=== PATIENT | male | born 1965 | race Caucasian/White ===

== ENCOUNTER → 2018-10-13 08:09 | Outpatient (CLI) | payer OTHER, SELFPAY ==
[2015-01-08 11:20] VITALS: BMI 26.4
[2018-10-13 10:20] LABS: Cholesterol 189 mg/dL (200); High Density Lipoprotein 43 mg/dL; PSA,Total - Annual Screen 0.71 ng/mL (0.00-4.00); Triglycerides 98 mg/dL; Very Low Density Lipoprotein 20 mg/dL (5-40)
== END ==
LOC: LAB 08:12 → MTLAB 08:12
PROVIDERS: Family Provider Family Medicine; PCP Family Medicine; Referring Provider Family Medicine; Visit Provider Family Medicine
DX: Z00.00 Encounter for general adult medical examination without abnormal findings (principal)
CPT/HCPCS: 36415; 80061; 84153; G0103

== ENCOUNTER 2018-12-09 05:26 | Day surgery (SDC) | payer OTHER, SELFPAY ==
[2018-12-09] VITALS (11 sets, daily range): BP systolic 96–157; BP diastolic 71–100; PULSE 68–102; RESP 14–16; TEMP 36.3–37.1; O2SAT 93–100
--- NOTE | 2018-12-09 05:54 | PCM.HP.STD ---
Problem List (1) Screening for intestinal cancer Status: Acute History of Present Illness Date of Admission: 12/09/18 The patient is a 53 year old M who presents for screening colonoscopy. His most recent colonoscopy was 5 years ago. He has not personally had a history of colon polyps or colon cancer. He does have a family history of colon cancer in his father. I assisted him 4 years ago with a ventral hernia repair. That remains solid and intact. He has no specific complaints today. No bright red blood per rectum or melena. No abdominal pain. He otherwise has been enjoying good health. Past Medical History Allergies No Known Allergies Allergy (Verified 12/06/18 13:30) Home Medications: Ambulatory Orders Medication Instructions Recorded Selenium 100 mcg PO DAILY 01/08/15 Cholecalciferol (Vitamin D3) 2,000 unit PO DAILY 12/06/18 [Vitamin D3] Surgical History: - - Ventral hernia repair with mesh Smoking Status: Never smoker Review of Systems Constitutional: Denies: Anorexia HEENT: Denies: Dysphasia Cardiovascular: Denies: Chest Pain Respiratory: Denies: Cough Gastrointestinal: Denies: Abdominal Pain, Constipation, Hematochezia, Melena Psychiatric: Reports: Anxiety Endocrine: Denies: Change in Body Habitus VTE Information - Inpt Only VTE Present on Admission: No Patient Problems: Active and Suspected Problems Screening for intestinal cancer (Acute) - Physical Exam General: Alert, Oriented x3, Cooperative, No apparent distress HEENT: Atraumatic Oral: Moist Mucosa Neck: Supple Lungs: Clear to auscultation Cardiovascular: Regular rate, Regular Rhythm Abdomen: Bowel Sounds Present, Soft, Non Tender Extremities: No Calf Tenderness Psych/Mental Status: Normal Affect Assessment/Plan All Active Problems Screening for intestinal cancer (Acute) I recommend a screening colonoscopy. The patient is aware of the technique, benefits, risks and alternatives. He has had an opportunity to ask and have questions answered. He presents via our open access program. We will proceed as noted. Peter Benitez M.D., F.A.C.S.
--- NOTE | 2018-12-09 06:56 | OP.ENDO_ITS ---
12/09/2018 Ravi Adair [address] [place] [address] Re : Colonoscopy procedure for Delfin Johns Dear Dr. Adair This procedure was performed on Sunday, December 09, 2018. My impressions and recommendations are as follows: Impressions : - The entire examined colon is normal. - No specimens collected. Recommendations : - Discharge patient to home. - Resume previous diet. - Continue present medications. - Repeat colonoscopy in 5 years for surveillance. My findings are described in the full procedure note, which is enclosed. If I can be of further assistance, please feel free to contact me at Doctor phone number(s): Work: . Sincerely, Peter Benitez MD 12/09/2018 6:56:17 AM This report has been signed electronically.
== END 2018-12-09 09:30 | disposition home or self-care (01) ==
LOC: EN 05:27 → AC 05:28
PROVIDERS: Family Provider Family Medicine; PCP Family Medicine; Referring Provider Surgery; Visit Provider Surgery
PROC: 0DJD8ZZ Inspection of Lower Intestinal Tract, Via Natural or Artificial Opening Endoscopic (ICD-10-PCS; CPT 45378; principal; 2018-12-09 06:25)
PROC: 0DJD8ZZ Inspection of Lower Intestinal Tract, Via Natural or Artificial Opening Endoscopic (ICD-10-PCS; CPT 45378; 2018-12-09 06:25)
DX: Z12.11 Encounter for screening for malignant neoplasm of colon (principal); Z80.0 Family history of malignant neoplasm of digestive organs
CPT/HCPCS: 45378; 99152; 99153; J7120

== ENCOUNTER → 2021-02-24 14:05 | Outpatient (CLI) | payer OTHER, SELFPAY ==
[2015-01-08 11:20] VITALS: BMI 26.4
[2021-02-24 16:02] LABS: T4 Free Direct 1.03 ng/dL (0.76-1.46); Thyroid Stim Hormone (TSH) 2.99 uIU/mL (0.358-3.74)
== END ==
PROVIDERS: PCP Family Medicine; Referring Provider Family Medicine; Visit Provider Family Medicine
DX: R53.83 Other fatigue (principal); E55.9 Vitamin D deficiency, unspecified
CPT/HCPCS: 36415; 82306; 84439; 84443

== ENCOUNTER → 2021-06-19 | Outpatient (CLI) | payer OTHER, SELFPAY | END | disposition home or self-care (01) | LOC: LABSPEC 14:31 | PROVIDERS: PCP Family Medicine; Referring Provider Family Medicine; Visit Provider Family Medicine | DX: Z20.822 Contact with and (suspected) exposure to COVID-19 (principal) | CPT/HCPCS: 87635; U0005; U0003 ==

== ENCOUNTER 2021-11-10 06:36 | Emergency (ER) | payer OTHER, SELFPAY ==
[2021-11-10 06:37] VITALS: BP 132/82; PULSE 109; RESP 18; TEMP 37.8; O2SAT 95; BMI 28.5
--- NOTE | 2021-11-10 07:53 | EX.ED.DYSGE1 ---
HPI History of Present Illness Chief Complaint: General Illness Informant: patient Onset/Context/Timing Onset: Days Context: Gradual Onset Timing: Continuous Worsened by: Nothing Relieved by: Tylenol Narrative Narrative: Patient presents with fever, nausea, and diarrhea that has been getting worse over the past week. Patient states that originally he fell and had an abrasion on his right lower leg. Patient states this got infected and he was prescribed Bactrim by his primary care physician. Patient states that over the last couple days he started having some fevers up to 101.4 at home. Patient admits to nausea and decreased appetite. Patient states he had 1 small emesis 2 days ago. Patient states he has been having watery diarrhea. Patient denies any melena or hematochezia. PFSH PFSH Medical History no medical history no medical history Home Medications cholecalciferol (vitamin D3) [Vitamin D3] 2,000 unit PO DAILY 12/06/18 [History Last Taken Unknown] clindamycin HCl [Cleocin HCl] 300 mg PO Q6H #28 capsule 11/10/21 [Rx Last Taken Unknown] multivitamin [Multi-Daily] 1 tab PO DAILY 11/10/21 [History Last Taken Unknown] Allergy/AdvReac Type Severity Reaction Status Date / Time No Known Allergies Allergy Verified 11/10/21 06:40 Surgical History (Updated 11/10/21 @ 07:[address] Ravi Davison DO) Hx of inguinal herniorrhaphy Hx of toe surgery Social History Smoking Status: Never smoker ROS ROS ED Constitutional Constitutional ED: Reports fever(s); Denies chills Eyes Eyes: Reports blurry vision; Denies diplopia ENT ENT ED: Denies rhinorrhea or sore throat Cardiovascular Cardiovascular: Denies chest pain or palpitations Respiratory/Chest Respiratory/Chest: Denies cough or dyspnea Gastrointestinal Gastrointestinal: Reports diarrhea, nausea and vomiting Genitourinary Genitourinary ED: Denies dysuria or hematuria Musculoskeletal Musculoskeletal: Denies back pain or neck pain Integumentary Denies abscess or rash Neurologic Neurologic: Denies headache(s) or weakness Allergic/Immunologic Allergic/Immunologic ED: Denies mouth swelling or urticaria EXAM Physical Exam Const Vital Signs: 11/10/21 06:37 11/10/21 08:52 Temperature 100.0 F H 101.4 F H Temperature Source Temporal Oral Pulse Rate 109 H 100 Respiratory Rate 18 18 Blood Pressure 132/82 H 125/79 H Blood Pressure Mean 98 94 Pulse Ox 95 95 Oxygen Delivery Method Room Air Room Air Positive well nourished and well developed General Appearance ED: well developed and NAD HEENT Reports moist mucous membranes Neck supple and no JVD Resp normal respiratory effort and clear to auscultation bilaterally Cardio regular rate, regular rhythm and no murmurs GI normal to inspection, nondistended, normoactive bowel sounds and non-tender Palpation: soft Neuro oriented x3, CN's II-XII intact bilaterally and no sensory deficits noted Sensorium / Orientation: alert Motor Exam: strength 5/5 throughout Psych mental status grossly normal Skin Skin Narrative: There is a healing abrasion over the anterior aspect of the right lower extremity. There is some mild surrounding erythema. There is some edema. There is no fluctuance or fluid collection noted. There is no discharge or drainage. There is mild tenderness over this area. Pedal pulses are equal bilateral. Sensation was intact to light touch in all digits. MDM MDM MDM Narrative Medical decision making narrative: Patient was given IV fluids and Zofran. CBC was within normal limits. Comprehensive metabolic profile showed a sodium of 131. Creatinine was 1.35. AST was 65 and ALT was 123. The remainder was essentially within normal limits. Urinalysis does not show any evidence of urinary tract infection. COVID-19 rapid antigen was obtained and was negative. Influenza A and influenza B swabs were obtained and were negative. Patient did develop a temperature of 101.4 here. Patient was given a dose of Tylenol for this. Patient was advised of his findings. Patient was advised that this could be a viral gastroenteritis or possibly medication reaction to the Bactrim. Patient was instructed to stop taking his Bactrim. Patient was given a prescription for clindamycin. Patient was instructed continue Tylenol or ibuprofen as needed for fevers. Patient was instructed to follow-up with his primary care physician in 5 to 7 days. Patient understood and was agreeable with the plan. All questions were answered. Lab Data Labs: Laboratory Results - last 24 hr 11/10/21 11/10/21 11/10/21 06:50 06:50 08:37 WBC 8.5 RBC 5.40 Hgb 16.5 Hct 45.4 MCV 84.1 MCH 30.6 MCHC 36.3 H RDW Std Deviation 38.7 RDW Coeff of Sarah 12.7 Plt Count 235 MPV 9.9 Immature Gran % (Auto) 0.400 Neut % (Auto) 83.1 H Lymph % (Auto) 8.8 L Forrest % (Auto) 5.8 Eos % (Auto) 1.4 Baso % (Auto) 0.5 Absolute Neuts (auto) 7.1 Absolute Lymphs (auto) 0.75 L Nucleated RBC % 0 Sodium 131 L Potassium 3.9 Chloride 103 Carbon Dioxide 20.0 L Anion Gap 8 BUN 15 Creatinine 1.35 H Estim Creat Clear Calc 65.85 Est GFR (MDRD) Af Amer 71 Est GFR (MDRD) Non-Af 58 L BUN/Creatinine Ratio 11.1 Glucose 116 H Calcium 9.0 Total Bilirubin 0.70 AST 65 H ALT 123 H Alkaline Phosphatase 55 Total Protein 6.9 Albumin 3.6 Globulin 3.3 Albumin/Globulin Ratio 1.1 Urine Color Yellow Urine Clarity Clear Urine pH 6.0 Ur Specific [place] 1.025 Urine Protein 30 H Urine Glucose (UA) Normal Urine Ketones 50 H Urine Occult Blood 150 H Urine Nitrite Negative Urine Bilirubin 1 H Urine Urobilinogen 1 H Ur Leukocyte Esterase 25 H Urine RBC 0-5 SEEN Urine WBC 0-5 SEEN Ur Squamous Epith Cells 0 SEEN Urine Bacteria 0 SEEN Urine Mucus 0 SEEN Discharge Plan Triage Chief Complaint: General Illness ED Provider: Ravi Davison Dx/Rx/DC Orders Clinical Impression: Cellulitis of right lower leg, Nausea vomiting and diarrhea Instructions: ED Cellulitis, ED Vomiting and Diarrhea ... Prescriptions: New clindamycin HCl [Cleocin HCl] 300 MG capsule 300 mg PO Q6H Qty: 28 RF: 0 Discontinued sulfamethoxazole 500 mg Tablet 1 mg PO BID RF: 0 No Action cholecalciferol (vitamin D3) [Vitamin D3] 2,000 UNIT capsule 2,000 unit PO DAILY RF: 0 multivitamin [Multi-Daily] Tablet 1 tab PO DAILY RF: 0 Primary Care Provider: Ravi Adair Referrals: Ravi Adair MD [Primary Care Provider] - 5-7 Days Disposition Disposition: Home, Self Care
[2021-11-10 08:30] LABS: Absolute Lymphocyte Count 0.75 X10^3/uL (0.83-4.51); Absolute Neutrophil Count 7.1 X10^3/uL (2.0-7.7); Basophil# 0.04 X10^3/uL; Basophil% 0.5 % (0-1); Eosinophil# 0.12 X10^3/uL; Eosinophils% 1.4 % (0-5); Hematocrit 45.4 % (40-54); Hemoglobin 16.5 g/dL (13.0-16.5); Lymphocyte # 0.75 X10^3/ul (0.83-4.51); Lymphocyte % 8.8 % (19-41); Mean Corp Hgb Conc 36.3 g/dL (32-36); Mean Corpuscular Hgb 30.6 pg (27.0-32.0); Mean Corpuscular Volume 84.1 fL (80-94); Mean Platelet Vol. 9.9 fl (6.2-12.0); Monocyte# 0.49 X10^3/uL; Monocyte% 5.8 % (0-10); NRBC Flagged by Analyzer 0 % (0-5); Neutrophil # 7.08 X10^3/uL (2.7-7.7); Neutrophil % 83.1 % (47-70); Platelet Count 235 K/mm3 (150-450); RBC Distribution Width CV 12.7 % (11.6-14.6); RBC Distribution Width SD 38.7 fl (35.1-43.9); White Blood Count 8.5 K/mm3 (4.4-11.0)
[2021-11-10 08:44] LABS: Bacteria 0 SEEN /hpf (None Seen); Mucous, Urine 0 SEEN /hpf (<or=2+); Squamous Epithelial Cells - UA 0 SEEN /hpf (0-5)
[2021-11-10 08:47] LABS: Color, Urine Yellow (Yellow); Glucose, Dipstick Normal (Normal); Ketone-Dipstick 50 mg/dl (Negative); Leukocyte Esterase-Dipstick 25 /ul (Negative); Nitrite-Dipstick Negative (Negative); Occult Blood-Urine 150 /ul (Negative); Protein-Dipstick 30 mg/dl (Negative); Specific Gravity, Urine 1.025 (1.002-1.030); Urine Clarity Clear (Clear); Urine Urobilinogen 1 mg/dl (Normal)
[2021-11-10 08:50] LABS: Urine Bilirubin Dipstick 1 mg/dL (Negative)
[2021-11-10 08:52] VITALS: BP 125/79; PULSE 100; RESP 18; TEMP 38.6; O2SAT 95
[2021-11-10 08:55] LABS: Red Blood Cells-Urine 0-5 SEEN /hpf (0-5); White Blood Cells 0-5 SEEN /hpf (0-5)
[2021-11-10 08:59] LABS: ALB/GLOB Ratio 1.1 RATIO (0.9-2.4); AST(SGOT) 65 U/L (15-37); Alanine Aminotransfer ALT/SGPT 123 U/L (16-61); Albumin, Serum 3.6 g/dL (3.2-5.0); Alkaline Phosphatase 55 U/L (45-117); Anion Gap 8 (5-15); BUN 15 mg/dL (7-18); BUN/Creat Ratio 11.1 RATIO (10-20); Chloride 103 mmol/L (98-107); Creatinine, Serum 1.35 mg/dL (0.70-1.30); EST Glomerular Filtration Rate 58 mL/min (>60); Est Glom Filt Rate - Afr Amer 71 mL/min (>60); Estimated Creatinine Clearance 65.85 ml/min; Globulin 3.3 g/dL (2.2-4.2); Glucose 116 mg/dL (74-106); Potassium 3.9 mmol/L (3.5-5.1); Protein, Total 6.9 g/dL (6.4-8.2); Sodium Level 131 mmol/L (136-145)
[2021-11-10] MEDS: 0.9% Normal Saline 1,000 ML 1000 ML IV (09:00)
[2021-11-10] MEDS: Acetaminophen 500 MG Tablet 1000 MG PO (09:00)
[2021-11-10] MEDS: Ondansetron 4 MG/2 ML Vial IV (09:00)
[2021-11-10 10:39] VITALS: BP 111/75; PULSE 85; RESP 16; TEMP 37.6; O2SAT 93
== END 2021-11-10 11:07 | disposition home or self-care (01) ==
PROVIDERS: Emergency Provider Emergency Medicine; PCP Family Medicine; Visit Provider Emergency Medicine
DX: L03.115 Cellulitis of right lower limb (principal); R11.2 Nausea with vomiting, unspecified; R19.7 Diarrhea, unspecified
CPT/HCPCS: 80053; 81001; 85025; 87426; 87804; 87811; 96361; 96374; 99283; J2405

== ENCOUNTER 2021-11-12 08:28 | Outpatient (CLI) | payer OTHER, SELFPAY | END 2021-11-12 23:59 | disposition home or self-care (01) | LOC: LABSPEC 08:29 | PROVIDERS: PCP Family Medicine; Referring Provider Family Medicine; Visit Provider Family Medicine | DX: R19.7 Diarrhea, unspecified (principal) | CPT/HCPCS: 87493 ==

== ENCOUNTER → 2022-02-03 | Outpatient (CLI) | payer OTHER, SELFPAY | END | disposition home or self-care (01) | LOC: IMMUN 13:53 | PROVIDERS: PCP Family Medicine; Referring Provider Family Medicine; Visit Provider Family Medicine | DX: Z23 Encounter for immunization (principal) | CPT/HCPCS: 0064A ==

== ENCOUNTER → 2022-04-14 | Outpatient (CLI) | payer OTHER, SELFPAY ==
[2022-04-14 09:58] LABS: Absolute Lymphocyte Count 3.17 X10^3/uL (0.83-4.51); Absolute Neutrophil Count 4.2 X10^3/uL (2.0-7.7); Basophil# 0.12 X10^3/uL; Basophil% 1.4 % (0-1); Eosinophil# 0.17 X10^3/uL; Hematocrit 47.8 % (40-54); Hemoglobin 16.1 g/dL (13.0-16.5); Lymphocyte # 3.17 X10^3/ul (0.83-4.51); Lymphocyte % 36.7 % (19-41); Mean Corp Hgb Conc 33.7 g/dL (32-36); Mean Platelet Vol. 9.6 fl (6.2-12.0); Monocyte# 0.91 X10^3/uL; Monocyte% 10.5 % (0-10); NRBC Flagged by Analyzer 0 % (0-5); Neutrophil # 4.23 X10^3/uL (2.7-7.7); Neutrophil % 49.1 % (47-70); Platelet Count 377 K/mm3 (150-450); RBC Distribution Width CV 12.8 % (11.6-14.6); Red Blood Count 5.37 M/mm3 (4.6-6.2); White Blood Count 8.6 K/mm3 (4.4-11.0)
[2022-04-14 10:19] LABS: Vitamin D,25 Hydroxy 44.3 ng/mL
[2022-04-14 10:25] LABS: Microalbumin,Random Urine 6.4 mg/L (NO RANGE EST.); Microalbumin:Creatinine Ratio 3.1 mg/g CRE (<30 mg/g CRE)
[2022-04-14 10:54] LABS: ALB/GLOB Ratio 1.1 RATIO (0.9-2.4); AST(SGOT) 24 U/L (15-37); Alanine Aminotransfer ALT/SGPT 80 U/L (16-61); Albumin, Serum 3.6 g/dL (3.2-5.0); Alkaline Phosphatase 49 U/L (45-117); Anion Gap 5 (5-15); BUN 19 mg/dL (7-18); BUN/Creat Ratio 16.5 RATIO (10-20); Calcium,Total 8.7 mg/dL (8.5-10.1); Chloride 105 mmol/L (98-107); Cholesterol 170 mg/dL (200); Creatinine, Serum 1.15 mg/dL (0.70-1.30); EST Glomerular Filtration Rate 70 mL/min (>60); Est Glom Filt Rate - Afr Amer 85 mL/min (>60); Globulin 3.3 g/dL (2.2-4.2); Glucose 98 mg/dL (74-106); High Density Lipoprotein 51 mg/dL; Potassium 3.7 mmol/L (3.5-5.1); Protein, Total 6.9 g/dL (6.4-8.2); Sodium Level 139 mmol/L (136-145); Thyroid Stim Hormone (TSH) 5.24 uIU/mL (0.358-3.74); Triglycerides 97 mg/dL; Very Low Density Lipoprotein 19 mg/dL (5-40)
== END | disposition home or self-care (01) ==
LOC: MTLAB 08:03
PROVIDERS: PCP Family Medicine; Referring Provider Family Medicine; Visit Provider Family Medicine
DX: Z00.00 Encounter for general adult medical examination without abnormal findings (principal); E55.9 Vitamin D deficiency, unspecified; G47.33 Obstructive sleep apnea (adult) (pediatric); R94.6 Abnormal results of thyroid function studies; R73.03 Prediabetes
CPT/HCPCS: 36415; 80053; 80061; 82043; 82306; 82570; 84443; 85025

== ENCOUNTER → 2022-12-28 | Outpatient (CLI) | payer OTHER, SELFPAY ==
[2022-12-28 10:46] LABS: ALB/GLOB Ratio 1.4 RATIO (0.9-2.4); AST(SGOT) 28 U/L (15-37); Alanine Aminotransfer ALT/SGPT 67 U/L (16-61); Albumin, Serum 3.9 g/dL (3.2-5.0); Alkaline Phosphatase 51 U/L (45-117); Anion Gap 7 (5-15); BUN 12 mg/dL (7-18); BUN/Creat Ratio 11.3 RATIO (10-20); Calcium,Total 9.2 mg/dL (8.5-10.1); Chloride 108 mmol/L (98-107); Cholesterol 195 mg/dL (200); Creatinine, Serum 1.06 mg/dL (0.70-1.30); EST Glomerular Filtration Rate 77 mL/min (>60); Est Glom Filt Rate - Afr Amer 93 mL/min (>60); Globulin 2.7 g/dL (2.2-4.2); Glucose 128 mg/dL (74-106); High Density Lipoprotein 45 mg/dL; PSA,Total - Annual Screen 0.83 ng/mL (0.00-4.00); Potassium 4.3 mmol/L (3.5-5.1); Protein, Total 6.6 g/dL (6.4-8.2); Sodium Level 142 mmol/L (136-145); Triglycerides 107 mg/dL; Very Low Density Lipoprotein 21 mg/dL (5-40)
[2022-12-31 11:15] LABS: Hemoglobin A1c 5.8 % (3.8-5.6)
== END | disposition home or self-care (01) ==
LOC: MTLAB 07:55
PROVIDERS: PCP Family Medicine; Referring Provider Family Medicine; Visit Provider Family Medicine
DX: Z00.00 Encounter for general adult medical examination without abnormal findings (principal); Z12.5 Encounter for screening for malignant neoplasm of prostate
CPT/HCPCS: 36415; 80053; 80061; 83036; 84153; G0103

== ENCOUNTER 2023-12-03 07:23 | Day surgery (SDC) | payer OTHER, SELFPAY ==
[2023-12-03 07:43] VITALS: BP 146/80; PULSE 88; RESP 16; TEMP 36.9; O2SAT 97; BMI 29.5
[2023-12-03] MEDS: Lactated Ringers 1,000 ML 15 ML IV (07:51)
--- NOTE | 2023-12-03 08:30 | COLBX_PTH ---
PATIENT: MICHELE PÉREZ II LOC: EN U#:[id number] AGE/SX: 58/M ROOM: RE12/03/[address]: Dr. Peter Benitez MD : 1965 BED: DIS: 12/03/2023 SPEC #: [id number] RECD: 12/03/23 11:09 STATUS: RAGHAV BUSTAMANTE #: [id number] MIK: 12/03/23 08:[address]: Peter Benitez DEPT: SURGICAL PATHOLOGY RECD BY: Key P[place] ENTERED: 12/03/23 12:14 SP TYPE: COLON BX OTHR DR: Dr. Ravi Adair MD Tissues: A - Cecum, NOS B - Sigmoid colon biopsy C - Rectum, NOS Procedures: Surgery Specimen Level IV HEADER OPERATION: Colonoscopy- open access with poly biopsy PRE-OP DIAGNOSIS: Screening TISSUE SUBMITTED: A-Cecal polyp biopsy, B- Polyp biopsy distal sigmoid, C- Polyp biopsy proximal rectum x2 MICROSCOPIC DIAGNOSIS A. Cecal polyp, biopsy: Fragments of colonic mucosa, no pathologic diagnosis. B. Distal sigmoid polyp, biopsy: Fragments of hyperplastic polyp. C. Proximal rectal polyps x2, biopsy: Fragments of hyperplastic polyp. / 12/06/23 MICROSCOPIC DESCRIPTION Slides are reviewed. GROSS DESCRIPTION A. Received in fixative is one container labeled with the patient's name and designated Cecal polyp biopsy. The specimen consists of multiple irregular fragments of light verma soft tissue that in aggregate measure 1.5 x 0.3 x 0.1 cm. The specimen is totally submitted in one cassette. B. Received in fixative is one container labeled with the patient's name and designated Polyp biopsy distal sigmoid. The specimen consists of two irregular fragments of light verma soft tissue that in aggregate measure 0.5 x 0.5 x 0.1 cm. The specimen is totally submitted in one cassette. C. Received in fixative is one container labeled with the patient's name and designated Polyp biopsy proximal rectum x2. The specimen consists of multiple irregular fragments of light verma soft tissue that in aggregate measure 1.0 x 0.5 x 0.1 cm. The specimen is totally submitted in one cassette. / 12/03/23 TC:1 CPT:61306e3
--- NOTE | 2023-12-03 09:11 | PCM.HP.STD ---
HPI - General General Date of Admission: 05/14/20 Date of Service: 12/03/23 Chief Complaint: Screening for intestinal cancer HPI Narrative MICHELE PÉREZ, is a 58 M who presents who presents today for his follow-up colonoscopy. Previous one was 2019. He has a family history with a paternal grandfather who had colon cancer and her father had multiple colon polyps. The patient presents via open access today. He denies any acute illnesses. No abdominal pain. No bright red blood per rectum or melena. He otherwise states that his health is stable. [facility] Medical History (Updated 12/01/23 @ 11:00 by Ann Marie Childers) Alcohol use Anxiety CPAP (continuous positive airway pressure) dependence Family hx of colon cancer Gastric reflux History of stress test Metabolic syndrome Non-smoker Sleep apnea Wears glasses Home Medications cholecalciferol (vitamin D3) 25 mcg (1,000 unit) tablet 25 mcg PO DAILY 10/16/23 [History Last Taken Unknown] multivitamin 1 tab PO DAILY 10/16/23 [History Last Taken 11/30/23] naproxen sodium 220 mg tablet (Aleve) 220 mg PO Q12H PRN pain 10/20/23 [History Last Taken Unknown] Allergy/AdvReac Type Severity Reaction Status Date / Time Sulfa (Sulfonamide Allergy Severe Nausea/Vom/ Verified 12/03/23 07:42 Antibiotics) Diarrhea Environmental Allergies: Allergy Other Verified 12/03/23 07:42 Uncoded Family History (Updated 10/20/23 @ 08:14 by Kandice Luke) Father Melanoma Myocardial infarction Colon polyps Grandfather Colon cancer Surgical History (Updated 12/01/23 @ 11:01 by Ann Marie Childers) Hx of colonoscopy Hx of inguinal herniorrhaphy Hx of LASIK Hx of toe surgery Social History (Updated 10/20/23 @ 08:32 by Kandice Luke) household members: spouse current occupational status: employed current occupation: [employer] Smoking Status: Never smoker details: Occasional alcohol substance use type: does not use ROS Constitutional Constitutional: Reports systems reviewed and no addt'l complaints, except as documented Cardiovascular Cardiovascular: Denies chest pain Respiratory/Chest Respiratory/Chest: Denies shortness of breath at rest Gastrointestinal Gastrointestinal: Denies abdominal pain, change in bowel habits, hematochezia or melena Vital Signs Vital Signs Vital Signs: 12/03/23 07:43 12/03/23 07:43 Temperature 98.4 F Temperature Source Temporal Pulse Rate 88 Respiratory Rate 16 Respiratory Pattern Normal Blood Pressure 146/80 H Blood Pressure Mean 102 Blood Pressure Source Monitor Blood Pressure Position Semi-Fowlers Blood Pressure Location Left Arm Pulse Ox 97 Oxygen Delivery Method Room Air Weight Weight: 211 lb 10.3 oz Body Mass Index (BMI) 29.5 Physical Exam Const alert, oriented x3 and no apparent distress General Appearance: cooperative and comfortable Eyes General Eye: normal appearance of both eyes Neck General: normal visual inspection Chest inspection of chest normal Resp Effort and Inspection: able to speak in complete sentences and symmetric chest movement Auscultation: clear to auscultation bilaterally Cardio regular rate and regular rhythm GI soft to palpation, non-tender and non-distended Extremity no calf tenderness Neuro oriented x3 Psych thought process normal Assessment & Plan Assessment/Plan (1) Encounter for screening for malignant neoplasm of colon: PLAN: The patient presents for colonoscopy with possible biopsy or polypectomy as indicated. He is aware of the technique, benefit, risk, alternatives. He has had an opportunity to ask and have questions answered. As noted he presents via open access today. Peter Benitez M.D., F.A.C.S.
--- NOTE | 2023-12-03 09:54 | OP.COLON_ITS ---
Patient Name: Delfin Johns Procedure Date: 12/03/2023 9:19 AM Date of : 1965 Age: 58 Procedure: Colonoscopy Indications: Screening for colorectal malignant neoplasm Providers: Peter Benitez MD Medicines: See the Anesthesia note for documentation of the administered medications Patient Profile: Last Colonoscopy: 2018. Complications: No immediate complications. Procedure: Pre-Anesthesia Assessment: - Prior to the procedure, a History and Physical was performed, and patient medications and allergies were reviewed. The patient's tolerance of previous anesthesia was also reviewed. The risks and benefits of the procedure and the sedation options and risks were discussed with the patient. All questions were answered, and informed consent was obtained. Prior Anticoagulants: The patient has taken no anticoagulant or antiplatelet agents. ASA Grade Assessment: II - A patient with mild systemic disease. After reviewing the risks and benefits, the patient was deemed in satisfactory condition to undergo the procedure. After I obtained informed consent, the scope was passed under direct vision. Throughout the procedure, the patient's blood pressure, pulse, and oxygen saturations were monitored continuously. The adult colonoscope was introduced through the anus and advanced to the cecum, identified by appendiceal orifice and ileocecal valve. The colonoscopy was performed without difficulty. The patient tolerated the procedure well. The quality of the bowel preparation was adequate to identify polyps. The ileocecal valve and the appendiceal orifice were photographed. Scope In: 9:23:06 AM Scope Withdrawal Time 0 hours 18 minutes 4 seconds Scope Out: 9:47:37 AM Total Procedure Duration Time 0 hours 24 minutes 31 seconds Findings: The digital rectal exam findings include non-thrombosed internal hemorrhoids and internal hemorrhoids that prolapse with straining, but spontaneously regress to the resting position (Grade II). Pertinent negatives include normal prostate (size, shape, and consistency). An 8 mm polyp was found in the cecum. The polyp was sessile. The polyp was removed with a cold biopsy forceps. Resection and retrieval were complete. A 5 mm polyp was found in the distal sigmoid colon. The polyp was sessile. The polyp was removed with a cold biopsy forceps. Resection and retrieval were complete. Three sessile polyps were found in the proximal rectum. The polyps were 2 to 3 mm in size. These polyps were removed with a cold biopsy forceps. Resection and retrieval were complete. The left colon was mildly tortuous. Impression: - Non-thrombosed internal hemorrhoids and internal hemorrhoids that prolapse with straining, but spontaneously regress to the resting position (Grade II) found on digital rectal exam. - One 8 mm polyp in the cecum, removed with a cold biopsy forceps. Resected and retrieved. - One 5 mm polyp in the distal sigmoid colon, removed with a cold biopsy forceps. Resected and retrieved. - Three 2 to 3 mm polyps in the proximal rectum, removed with a cold biopsy forceps. Resected and retrieved. - Tortuous colon. Recommendation: - Discharge patient to home. - Resume previous diet. - Continue present medications. - Repeat colonoscopy in 5 years for surveillance based on pathology results. - Telephone my office for pathology results in 1 week. Procedure Code(s): --- Professional --- 34537, Colonoscopy, flexible; with biopsy, single or multiple Diagnosis Code(s): --- Professional --- Z12.11, Encounter for screening for malignant neoplasm of colon K64.1, Second degree hemorrhoids D12.0, Benign neoplasm of cecum D12.5, Benign neoplasm of sigmoid colon D12.8, Benign neoplasm of rectum Q43.8, Other specified congenital malformations of intestine CPT copyright 2021 [employer]. All rights reserved. The codes documented in this report are preliminary and upon network operations specialist review may be revised to meet current compliance requirements. Peter Benitez MD 12/03/2023 9:54:02 AM This report has been signed electronically. Number of Addenda: 0 Note Initiated On: 12/03/2023 9:19 AM
--- NOTE | 2023-12-03 09:54 | OP.CCLET_ITS ---
12/03/2023 Ravi Adair [address] [facility] [place] [place] [address] [place] [address] Re : Colonoscopy procedure for Delfin Johns Dear Dr. Adair This procedure was performed on Sunday, December 03, 2023. My impressions and recommendations are as follows: Impressions : - Non-thrombosed internal hemorrhoids and internal hemorrhoids that prolapse with straining, but spontaneously regress to the resting position (Grade II) found on digital rectal exam. - One 8 mm polyp in the cecum, removed with a cold biopsy forceps. Resected and retrieved. - One 5 mm polyp in the distal sigmoid colon, removed with a cold biopsy forceps. Resected and retrieved. - Three 2 to 3 mm polyps in the proximal rectum, removed with a cold biopsy forceps. Resected and retrieved. - Tortuous colon. Recommendations : - Discharge patient to home. - Resume previous diet. - Continue present medications. - Repeat colonoscopy in 5 years for surveillance based on pathology results. - Telephone my office for pathology results in 1 week. My findings are described in the full procedure note, which is enclosed. If I can be of further assistance, please feel free to contact me at Doctor phone number(s): Work: . Sincerely, Peter Benitez MD 12/03/2023 9:54:02 AM This report has been signed electronically.
[2023-12-03 09:57] VITALS: BP 146/80; BP 93/60; PULSE 74; RESP 20; TEMP 36.3; O2SAT 98
[2023-12-03 10:00] VITALS: BP 146/80; BP 96/52; PULSE 67; RESP 18; O2SAT 97
[2023-12-03 10:05] VITALS: BP 110/78; BP 146/80; PULSE 67; RESP 18; O2SAT 98
[2023-12-03 10:09] VITALS: BP 105/75; BP 146/80; PULSE 66; RESP 18; TEMP 36.4; O2SAT 97
[2023-12-03 10:28] VITALS: BP 146/80
== END 2023-12-03 11:02 | disposition home or self-care (01) ==
LOC: EN 07:37 → AC 08:39
PROVIDERS: PCP Family Medicine; Referring Provider Surgery; Visit Provider Surgery
PROC: 0DJD8ZZ Inspection of Lower Intestinal Tract, Via Natural or Artificial Opening Endoscopic (ICD-10-PCS; CPT 45378; principal; 2023-12-03 08:25)
DX: Z12.11 Encounter for screening for malignant neoplasm of colon (principal); K64.1 Second degree hemorrhoids; D12.0 Benign neoplasm of cecum; D12.5 Benign neoplasm of sigmoid colon; D12.8 Benign neoplasm of rectum; Q43.8 Other specified congenital malformations of intestine; Z83.719 Family history of colon polyps, unspecified
CPT/HCPCS: 45380; 88305; J7120; J2405

== ENCOUNTER → 2023-12-17 | Outpatient (CLI) | payer OTHER, SELFPAY ==
[2023-12-17 11:42] LABS: Hemoglobin A1c 5.9 % (3.8-5.6)
[2023-12-17 11:48] LABS: ALB/GLOB Ratio 1.2 RATIO (0.9-2.4); AST(SGOT) 38 U/L (15-37); Alanine Aminotransfer ALT/SGPT 77 U/L (16-61); Albumin, Serum 3.8 g/dL (3.2-5.0); Alkaline Phosphatase 46 U/L (45-117); Anion Gap 6 (5-15); BUN 12 mg/dL (7-18); Calcium,Total 9.1 mg/dL (8.5-10.1); Chloride 108 mmol/L (98-107); Cholesterol 180 mg/dL (200); Creatinine, Serum 1.09 mg/dL (0.70-1.30); EST Glomerular Filtration Rate 74 mL/min (>60); Est Glom Filt Rate - Afr Amer 90 mL/min (>60); Globulin 3.1 g/dL (2.2-4.2); Glucose 121 mg/dL (74-106); High Density Lipoprotein 45 mg/dL; Protein, Total 6.9 g/dL (6.4-8.2); Sodium Level 139 mmol/L (136-145); Triglycerides 111 mg/dL; Very Low Density Lipoprotein 22 mg/dL (5-40)
== END | disposition home or self-care (01) ==
LOC: MTLAB 08:30
PROVIDERS: PCP Family Medicine; Referring Provider Family Medicine; Visit Provider Family Medicine
DX: Z13.220 Encounter for screening for lipoid disorders (principal); E88.810 Metabolic syndrome
CPT/HCPCS: 36415; 80053; 80061; 83036

== ENCOUNTER → 2024-02-01 | Outpatient (CLI) | payer OTHER, SELFPAY ==
--- NOTE | 2024-02-01 08:38 | US_ITS ---
STUDY: ABDOMINAL ULTRASOUND - RIGHT UPPER QUADRANT; ELASTOGRAPHY REASON FOR VISIT: Male, 58 years old. Abnormal transaminases. TECHNIQUE: Ultrasound evaluation of the right upper quadrant was performed with real-time and static cid-scale imaging. Point quantification shear wave elastography was performed ([employer]). TECHNICAL QUALITY: Adequate. COMPARISON: None. FINDINGS: Liver: The liver is slightly enlarged and measures 18.1 cm. There is increased echogenicity consistent with fatty infiltration. The bile ducts are within normal limits. There is hepatic color flow. The direction of portal flow is hepatopetal. There is no demonstrated mass lesion. Median liver stiffness measured 7.4 kPa. Gallbladder: Normal distended gallbladder. The gallbladder wall measures 2.0 mm. There is a negative sonographic Hurd''s sign. There is no pericholecystic fluid. There are no gallstones. Common Bile Duct (C.B.D.): The common bile duct measures 4.0 mm. Pancreas: There is normal echogenicity of the visualized pancreas. There is no demonstrated pancreatic mass or cyst. Right Kidney: Normal size of the right kidney. The right kidney measures 12.1 cm x 5.8 cm x 4.9 cm. Normal renal cortex. The right cortex measures 1.9 cm. There is no demonstrated renal mass or cyst. There is no right hydronephrosis. US/ABD Limited w/ Elastography IMPRESSION: 1. 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 Electronically Signed: Ryan Ro MD at 14:58 EDT ,
== END | disposition home or self-care (01) ==
PROVIDERS: PCP Family Medicine; Referring Provider Family Medicine; Visit Provider Family Medicine
DX: R74.8 Abnormal levels of other serum enzymes (principal)
CPT/HCPCS: 76705; 76981

== ENCOUNTER → 2024-02-02 | Outpatient (CLI) | payer OTHER, SELFPAY ==
[2024-02-02 11:19] LABS: Free T3 3.3 pg/mL (2.18-3.98); T4 Free Direct 1.09 ng/dL (0.76-1.46); Thyroid Stim Hormone (TSH) 4.92 uIU/mL (0.358-3.74)
[2024-02-06 17:19] LABS: Testosterone, % Free 2.94 % (1.50-4.20); Testosterone, Free 10.03 ng/dL (5.00-21.00); Testosterone, Total 341 ng/dL (264-916)
== END | disposition home or self-care (01) ==
PROVIDERS: PCP Family Medicine; Referring Provider Family Medicine; Visit Provider Family Medicine
DX: R94.6 Abnormal results of thyroid function studies (principal); N52.9 Male erectile dysfunction, unspecified
CPT/HCPCS: 36415; 84402; 84403; 84439; 84443; 84481

== ENCOUNTER → 2024-07-13 | Outpatient (CLI) | payer OTHER, SELFPAY ==
[2024-07-13 11:22] LABS: Bacteria 0 SEEN /hpf (None Seen); Squamous Epithelial Cells - UA 0 SEEN /hpf (0-5)
[2024-07-13 15:34] LABS: Color, Urine Yellow (Yellow); Glucose, Dipstick Normal (Normal); Ketone-Dipstick Negative (Negative); Leukocyte Esterase-Dipstick Negative /ul (Negative); Nitrite-Dipstick Negative (Negative); Occult Blood-Urine 10 /ul (Negative); Protein-Dipstick 15 mg/dl (Negative); Specific Gravity, Urine 1.015 (1.002-1.030); Urine Bilirubin Dipstick Negative (Negative); Urine Clarity Clear (Clear); Urine Urobilinogen Normal (Normal)
[2024-07-13 15:39] LABS: Absolute Lymphocyte Count 2.58 X10^3/uL (0.83-4.51); Absolute Neutrophil Count 4.4 X10^3/uL (2.0-7.7); Basophil# 0.09 X10^3/uL; Basophil% 1.1 % (0-1); Eosinophil# 0.23 X10^3/uL; Eosinophils% 2.8 % (0-5); Hemoglobin 15.2 g/dL (13.0-16.5); Lymphocyte # 2.58 X10^3/ul (0.83-4.51); Lymphocyte % 31.7 % (19-41); Mean Corpuscular Hgb 29.5 pg (27.0-32.0); Mean Corpuscular Volume 89.1 fL (80-94); Mean Platelet Vol. 11.3 fl (6.2-12.0); Monocyte# 0.78 X10^3/uL; Monocyte% 9.6 % (0-10); NRBC Flagged by Analyzer 0 % (0-5); Neutrophil # 4.43 X10^3/uL (2.7-7.7); Neutrophil % 54.6 % (47-70); Platelet Count 258 K/mm3 (150-450); RBC Distribution Width CV 12.5 % (11.6-14.6); RBC Distribution Width SD 41.4 fl (35.1-43.9); Red Blood Count 5.16 M/mm3 (4.6-6.2); White Blood Count 8.1 K/mm3 (4.4-11.0)
[2024-07-13 15:55] LABS: ALB/GLOB Ratio 1.3 RATIO (0.9-2.4); AST(SGOT) 34 U/L (15-37); Alanine Aminotransfer ALT/SGPT 71 U/L (16-61); Albumin, Serum 4.1 g/dL (3.2-5.0); Alkaline Phosphatase 45 U/L (45-117); Anion Gap 6 (5-15); BUN 13 mg/dL (7-18); BUN/Creat Ratio 11.2 RATIO (10-20); Calcium,Total 9.3 mg/dL (8.5-10.1); Chloride 105 mmol/L (98-107); Creatinine, Serum 1.16 mg/dL (0.70-1.30); EST Glomerular Filtration Rate 69 mL/min (>60); Est Glom Filt Rate - Afr Amer 83 mL/min (>60); Globulin 3.1 g/dL (2.2-4.2); Glucose 96 mg/dL (74-106); PSA,Total- Diagnostic 0.79 ng/mL (0.0-4.0); Potassium 4.1 mmol/L (3.5-5.1); Protein, Total 7.2 g/dL (6.4-8.2); Sodium Level 139 mmol/L (136-145)
[2024-07-13 15:58] LABS: Erythrocyte Sedimentation Rate 5 mm/hr (0-20)
[2024-07-13 16:00] LABS: Hemoglobin A1c 6.1 % (3.8-5.6)
[2024-07-13 16:20] LABS: Mucous, Urine 1+ /hpf (<or=2+); Red Blood Cells-Urine 0-5 SEEN /hpf (0-5); White Blood Cells 0-5 SEEN /hpf (0-5)
[2024-07-13 16:24] LABS: Hyaline Cast 0-5 SEEN /lpf (0-5)
[2024-07-13 16:31] LABS: Microalbumin,Random Urine 9.5 mg/L (NO RANGE EST.); Microalbumin:Creatinine Ratio 3.9 mg/g CRE (<30 mg/g CRE)
== END | disposition home or self-care (01) ==
PROVIDERS: PCP Family Medicine; Referring Provider Family Medicine; Visit Provider Family Medicine
DX: R82.90 Unspecified abnormal findings in urine (principal); K76.0 Fatty (change of) liver, not elsewhere classified
CPT/HCPCS: 36415; 80053; 81001; 82043; 82570; 83036; 84153; 85025; 85652; 87077; 87086; 87088

== ENCOUNTER → 2025-07-20 | Outpatient (CLI) | payer OTHER, SELFPAY ==
[2025-07-20 10:25] LABS: Hematocrit 47.2 % (40-54); Hemoglobin 15.7 g/dL (13.0-16.5); Mean Corp Hgb Conc 33.3 g/dL (32-36); Mean Corpuscular Volume 89.2 fL (80-94); Mean Platelet Vol. 11.9 fl (6.2-12.0); Platelet Count 281 K/mm3 (150-450); RBC Distribution Width CV 12.6 % (11.6-14.6); RBC Distribution Width SD 41.5 fl (35.1-43.9); Red Blood Count 5.29 M/mm3 (4.6-6.2); White Blood Count 8.7 K/mm3 (4.4-11.0)
[2025-07-20 11:02] LABS: AST(SGOT) 46 U/L (<=37); Alanine Aminotransfer ALT/SGPT 89 U/L (<=46); Albumin, Serum 4.4 g/dL (3.5-5.0); Alkaline Phosphatase 50 U/L (40-129); Anion Gap 11 (5-15); BUN 12 mg/dL (4-19); BUN/Creat Ratio 11.7 RATIO (10-20); Calcium,Total 9.5 mg/dL (7.6-11.0); Carbon Dioxide 26.0 mmol/L (21.0-32.0); Chloride 102 mmol/L (98-108); Globulin 2.6 g/dL (2.2-4.2); Glucose 126 mg/dL (70-99); Potassium 4.4 mmol/L (3.3-5.1)
== END | disposition home or self-care (01) ==
LOC: MTLAB 08:23
PROVIDERS: PCP Family Medicine; Referring Provider Family Medicine; Visit Provider Family Medicine
DX: E88.10 Lipodystrophy, unspecified (principal); K76.0 Fatty (change of) liver, not elsewhere classified
CPT/HCPCS: 36415; 80053; 83036; 85027